=== PATIENT | female | born 1990 | race Caucasian/White ===

== ENCOUNTER 2022-03-19 19:30 | Emergency (ER) | payer BC ==
[~2022-03-19] VITALS: Ht 165.1 cm; Wt 59.0 kg
--- NOTE | 2022-03-19 19:49 | NUR ---
Patient to ER bed 7 to gown for evaluation. Side rails up. Report given to Gale SUMMERS.
[2022-03-19 19:51] VITALS: BP_SYST 112
--- NOTE | 2022-03-19 20:04 | NUR ---
DR KAUFMAN AT BEDSIDE FOR EXAM.
--- NOTE | 2022-03-19 20:09 | NUR ---
PT COMES IN AMB FROM HOME FOR C/O SPOTTING RED BLOOD SINCE TODAY WITH INTERMITTENT CRAMPING FOR THE LAST 7 DAYS. REPORTS BEING , APPROX 7 WEEKS. G-1, P-0. PT IN NAD. RESP EVEN UND UNLABORED, ON RA @99%. FAMILY AT BEDSIDE. STATES SHE HAS APPT WITH [facility]DATA SERVICES DEVELOPER NEXT WEEK.
[2022-03-19 20:25] LABS: EOSINOPHILS # (AUTO) 0.1 K/uL (0.0-0.4); PLATELET COUNT (AUTO) 200 K/uL (130-430)
[2022-03-19 20:34] LABS: BASOPHILS % (AUTO) 0.4 % (0.0-2.0); EOSINOPHILS % (AUTO) 1.1 % (0.0-4.0); HEMATOCRIT 39.9 % (36-48); HEMOGLOBIN 13.6 g/dL (12.0-16.0); LYMPHOCYTES # (AUTO) 2.6 K/uL (1.0-5.5); LYMPHOCYTES % (AUTO) 35.4 % (20.5-51.5); MEAN CORPUSCULAR HEMOGLOBIN 31 pg (27-31); MEAN CORPUSCULAR HGB CONC 34 % (32-36); MEAN CORPUSCULAR VOLUME 92 fL (79.0-98.0); MONOCYTES # (AUTO) 0.6 K/uL (0.0-1.0); NEUTROPHILS # (AUTO) 4.1 K/uL (1.8-7.7); NEUTROPHILS % (AUTO) 55.1 % (40.0-70.0); RED BLOOD CELL COUNT(AUTO) 4.36 MIL/uL (4.2-6.2); RED CELL DISTRIBUTION WIDTH 13.2 % (9.0-15.0); WHITE BLOOD COUNT (AUTO) 7.4 K/uL (4.8-10.8)
--- NOTE | 2022-03-19 20:38 | NUR ---
Accompanied material handling technician for transvaginal ultrasound. Patient tolerated well.
--- NOTE | 2022-03-19 22:33 | NUR ---
Consent signed per patient agreeing to administration of Rhogam. Blood has been type and crossmatched. Blood sent from blood bank. Patient or responsible democrat informed of potential complications associated with Rhogam. Informed of possible transfusion reaction symptoms. Aware of need to notify nurse at once of itching, shortness of breath, flushing, feeling of impending doom, or other symptoms not previously present. Patient tolerated well. Lot # [id number] exp 11/06/23
[2022-03-19 23:49] VITALS: BP_SYST 110
--- NOTE | 2022-03-19 23:49 | NUR ---
Patient given written and verbal discharge instructions and verbalizes understanding. ER MD discussed with patient the results and treatment provided. Patient in stable condition. ID arm band removed. No Rx given. Patient educated on pain management and to follow up with PMD. Pain Scale 0/10 Opportunity for questions provided and answered.
== END 2022-03-19 23:49 | disposition home or self-care (01) ==
LOC: SED 19:30
DX: O20.0 Threatened abortion (principal); Z3A.01 Less than 8 weeks gestation of pregnancy
CPT/HCPCS: 36415; 76801; 76817; 81002; 81025; 84702; 85025; 86900; 86901; 96372; 99284; J2790; 86886; 99283